=== PATIENT | female | born 1985 | race Caucasian/White ===

== ENCOUNTER 2017-12-21 12:46 | Outpatient (REF) | payer OTHER, SELFPAY | END 2017-12-21 13:06 | LOC: NCHCN 12:46 | PROVIDERS: PCP Family Medicine; Visit Provider Family Medicine | DX: Z86.39 Personal history of other endocrine, nutritional and metabolic disease (principal) | CPT/HCPCS: 84443 ==

== ENCOUNTER 2018-09-05 11:32 | Outpatient (REF) | payer OTHER, SELFPAY ==
[2018-09-05 18:43] LABS: TSH 1.49 uIU/mL (0.358-3.74)
[2018-09-06 05:00] LABS: Vitamin D 25 Total 35.6 ng/ml (30-100)
== END 2018-09-05 11:52 ==
LOC: NCHCN 11:32
PROVIDERS: PCP Family Medicine; Visit Provider Family Medicine
DX: E05.00 Thyrotoxicosis with diffuse goiter without thyrotoxic crisis or storm (principal)
CPT/HCPCS: 82306; 84439; 84443

== ENCOUNTER 2019-04-24 11:08 | Outpatient (CLI) | payer OTHER, SELFPAY ==
--- NOTE | 2019-04-24 11:19 | DI.RAD_ITS ---
EXAM: XR KNEE LT 3V AP,LAT,MIRACLE CLINICAL HISTORY: LT KNEE PAIN M25.562. TECHNIQUE: 2D digital imaging was performed. COMPARISON: No exams were available for comparison FINDINGS: BONES: No acute fracture is present. No bony destructive lesion is seen. JOINTS: The knee is normally aligned. No joint effusion is seen. SOFT TISSUE: Normal. IMPRESSION: Normal radiographs of the left knee.
== END 2019-04-24 11:28 ==
PROVIDERS: PCP Family Medicine; Visit Provider Family Medicine
DX: M25.562 Pain in left knee (principal)
CPT/HCPCS: 73562

== ENCOUNTER 2019-10-09 12:34 | Outpatient (REF) | payer OTHER, SELFPAY ==
[2019-10-09 20:09] LABS: HCT 45.4 % (36.0-46.0); HGB 15.1 g/dL (11.2-15.7); MCH 32.1 pg (27.0-33.0); MCHC 33.3 % (32.0-36.0); MCV 96.6 fL (80-95); MPV 10.5 fL (8.0-11.0); Platelet Count 255 10^3/uL (130-400); RDW 12.6 % (11.7-14.6); RDW-SD 44.9 fL; WBC 9.19 10^3/uL (4.4-10.8)
[2019-10-09 21:10] LABS: ALT 22 U/L (14-59); AST 15 U/L (15-37); Albumin 4.1 g/dL (3.4-5.0); Alkaline Phosphatase 53 U/L (46-116); Anion Gap 9.1 mmol/L (3-11); BUN 10 mg/dL (7-18); Bilirubin, Total 0.3 mg/dL (0.2-1.0); CO2 27.9 mmol/L (21.0-32.0); CREATININE 0.82 mg/dL (0.55-1.02); Calcium 9.1 mg/dL (8.5-10.1); Chloride 104 mmol/L (98-107); Ferritin 29 ng/mL (8-252); Folate 14.6 ng/mL (8.6-20.0); Glucose 96 mg/dL (74-106); Magnesium 1.8 mg/dL (1.8-2.4); Potassium 4.1 mmol/L (3.5-5.1); Sodium 141 mmol/L (136-145); Total Protein 6.8 g/dL (6.4-8.2); Vitamin B12 378 pg/mL (193-986)
[2019-10-11 11:18] LABS: IgA 194 mg/dL (85-499)
[2019-10-12 13:09] LABS: Tissue Transglutaminase Ab IgA <1.2 U/mL; Tissue Transglutaminase Ab IgG <1.2 U/mL
== END 2019-10-09 12:54 ==
LOC: NCHCN 12:34
PROVIDERS: PCP Family Medicine; Visit Provider Family Medicine
DX: R25.1 Tremor, unspecified (principal); R53.83 Other fatigue; R63.4 Abnormal weight loss; R00.2 Palpitations
CPT/HCPCS: 80053; 82784; 85027; 82607; 82728; 82746; 83516; 83735

== ENCOUNTER 2020-10-23 16:12 | Outpatient (REF) | payer OTHER, SELFPAY ==
--- NOTE | 2020-10-23 15:30 | PAPFT_PTH ---
PATIENT: Mary Wilson LOC: [facility] U#:[id number] AGE/SX: 35/F ROOM: RE10/23/[address]: Jovana Larsen : 1985 BED: DIS: 10/23/2020 SPEC #: [id number] RECD: 10/26/20 12:56 STATUS: LIZZY REShruthi #: [id number] RAMAKRISHNA: 10/23/20 15:[address]: Jovana Larsen DEPT: [facility] Cytology RECD BY: Alesha Begum Tissues: 1 - CX/ENDOCX FOR PAP SMEARS Procedures: PAP THIN PREP/[facility] Screening HPV DNA PROBE Comments: [id number] (CHLAMYDIA/GC)
[2020-10-23 19:49] LABS: HGB 14.4 g/dL (11.2-15.7); MCHC 33.5 % (32.0-36.0); MCV 95.6 fL (80-95); MPV 10.3 fL (8.0-11.0); Platelet Count 253 10^3/uL (130-400); RDW 12.8 % (11.7-14.6); RDW-SD 44.8 fL; WBC 8.33 10^3/uL (4.4-10.8)
[2020-10-23 20:19] LABS: FREE T4 0.84 ng/dL (0.76-1.46)
[2020-10-25 17:05] LABS: T3, Total 117 ng/dL (97-169)
[2020-10-26 10:00] LABS: Hepatitis C Ab w Rflx HCV PCR Negative (Negative)
[2020-10-26 10:12] LABS: HIV-1/2 Ag & Ab Screen Negative (Negative)
[2020-10-27 15:29] LABS: Chlamydia Result Negative (Negative); GC Result Negative (Negative)
== END 2020-10-23 16:13 | disposition home or self-care (01) ==
LOC: NCHCN 16:12
PROVIDERS: PCP Family Medicine; Visit Provider Family Medicine
DX: R53.83 Other fatigue (principal); R00.2 Palpitations; Z00.00 Encounter for general adult medical examination without abnormal findings; Z86.39 Personal history of other endocrine, nutritional and metabolic disease; Z11.4 Encounter for screening for human immunodeficiency virus [HIV]; Z11.59 Encounter for screening for other viral diseases; Z12.4 Encounter for screening for malignant neoplasm of cervix; Z11.3 Encounter for screening for infections with a predominantly sexual mode of transmission
CPT/HCPCS: 85027; 86803; 87389; 87491; 87591; 88142; 84439; 84443; 84480; 87624

== ENCOUNTER 2021-11-19 18:47 | Outpatient (REF) | payer OTHER, SELFPAY ==
[2021-11-19 20:17] LABS: ALT 21 U/L (14-59); AST 17 U/L (15-37); Albumin 3.8 g/dL (3.4-5.0); Alkaline Phosphatase 50 U/L (46-116); Anion Gap 9.4 mmol/L (3-11); BUN 13 mg/dL (7-18); Bilirubin, Total 0.3 mg/dL (0.2-1.0); CO2 28.6 mmol/L (21.0-32.0); CREATININE 0.8 mg/dL (0.55-1.02); Calcium 8.7 mg/dL (8.5-10.1); Chloride 106 mmol/L (98-107); Estimated GFR 97.26 (mL/min/1.73m2); Glucose 72 mg/dL (74-106); Potassium 3.4 mmol/L (3.5-5.1); Sodium 144 mmol/L (136-145); TSH (W/Ref FT4) 0.56 uIU/mL (0.36-3.74); Total Protein 6.7 g/dL (6.4-8.2)
== END 2021-11-19 18:48 | disposition home or self-care (01) ==
LOC: NCHCN 18:47
PROVIDERS: PCP Family Medicine; Visit Provider Family Medicine
DX: Z86.39 Personal history of other endocrine, nutritional and metabolic disease (principal); R68.89 Other general symptoms and signs
CPT/HCPCS: 80053; 84443